=== PATIENT | male | born 1980 | race Caucasian/White ===

== ENCOUNTER 2021-05-03 16:44 | Emergency (ER) | payer SELFPAY ==
[2021-05-03] MEDS ORDERED: VISTARIL 50 MG50 MG PO (18:38)
== END 2021-05-03 18:43 | disposition home or self-care (01) ==
LOC: ER1 16:44
DX: U07.1 COVID-19 (principal); F41.9 Anxiety disorder, unspecified
CPT/HCPCS: 99284; U0002